=== PATIENT | male | born 1950 | race Caucasian/White ===

== ENCOUNTER 2018-07-10 09:16 | Inpatient (IN) | payer OTHER, MEDICAID ==
[~2018-07-10] VITALS: Ht 170.2 cm; Wt 80.8 kg
[2018-07-10] MEDS ORDERED: ACETAMINOPHEN 325MG TABLET PO STA (09:28)
[2018-07-10] MEDS ORDERED: SODIUM CHLORIDE 0.9% 1,000 ML IV ONE (09:28)
[2018-07-10 10:04] LABS: CHLORIDE 96 mEq/L (98-107)
[2018-07-10 10:07] LABS: INR 1.1; PROTHROMBIN TIME 11.4 sec (9.1-11.1)
[2018-07-10 10:12] LABS: HEMATOCRIT. 43.6 % (42.0-52.0); HEMOGLOBIN. 14.2 g/dL (14.0-18.0); MEAN CORPUSCULAR HEMOGLOBIN 29.4 pg (28.0-32.0); MEAN CORPUSCULAR VOLUME 90.2 fL (80.0-94.0); PLATELET 222 x1000/uL (130-400); RED BLOOD CELL COUNT 4.84 mill/uL (4.7-6.1); RED CELL DISTRIBUTION WIDTH 14.2 % (11.6-14.6)
[2018-07-10] MEDS ORDERED: SODIUM CHLORIDE 0.9% 1000ML BAG (SEPSIS BOLUS) IV ONE (10:30)
[2018-07-10] MEDS ORDERED: VANCOMYCIN 1 G PREMIX 200 ML IV ONE (10:30)
[2018-07-10] MEDS ORDERED: PIPERACILLIN/TAZ 3.375G PREMIX 50 ML IV ONE (10:30)
[2018-07-10 10:43] LABS: PLATELET ESTIMATE NORMAL
[2018-07-10 11:43] LABS: CLARITY URINE CLEAR (CLEAR); COLOR URINE DARK YELLOW (YELLOW); KETONES URINE TRACE (NEGATIVE); LEUKOCYTE ESTERASE URINE NEGATIVE (NEGATIVE); NITRITE URINE NEGATIVE (NEGATIVE); OCCULT BLOOD URINE NEGATIVE (NEGATIVE); PROTEIN URINE NEGATIVE (NEGATIVE); SPECIFIC GRAVITY URINE 1.018 (1.005-1.030); UROBILINOGEN URINE 0.2 E.U./dL (0.2-1.0)
[2018-07-10] MEDS ORDERED: DEXTROSE 50% WATER 50ML SYRINGE IV PRN (12:00)
[2018-07-10] MEDS ORDERED: ONDANSETRON HCL 4MG/2ML INJ IV PRN (12:00)
[2018-07-10] MEDS ORDERED: IPRATROPIUM/ALBUTEROL 0.5-3(2.5)MG/3ML NEB HHN PRN (12:00)
[2018-07-10] MEDS: ACETAMINOPHEN 325MG TABLET PO PRN ×2 (15:06→20:53)
[2018-07-10 15:30] VITALS: BP 140/70
[2018-07-10 16:00] VITALS: BP 134/72
[2018-07-10] MEDS ORDERED: PIPERACILLIN/TAZ 3.375G PREMIX 50 ML IV SCH (17:30)
[2018-07-10 18:00] VITALS: BP 127/70
[2018-07-10] MEDS: BLOOD SUGAR DIAGNOSTIC STRIP TEST SCH ×2 (18:00→21:00)
[2018-07-10] MEDS: INSULIN LISPRO 100 UNITS/ML SUBCUT SCH ×2 (19:00→21:49)
[2018-07-10] MEDS ORDERED: AMLO2.5T45 MT (19:49)
[2018-07-10] MEDS ORDERED: APIX5TAB MT (19:49)
[2018-07-10] MEDS ORDERED: ACET325S17 PO (19:49)
[2018-07-10] MEDS ORDERED: PRAV20TA57 MT (19:49)
[2018-07-10] MEDS ORDERED: TAMS0.4C31 MT (19:49)
[2018-07-10] MEDS ORDERED: FINA5TAB11 MT (19:49)
[2018-07-10] MEDS ORDERED: CLOP75TA33 MT (19:49)
[2018-07-10] MEDS ORDERED: OMEP40CA34 MT (19:49)
[2018-07-10] MEDS ORDERED: LOSA100T14 MT (19:49)
[2018-07-10] MEDS ORDERED: GABA-531 MT (19:49)
[2018-07-10] MEDS ORDERED: CHOL200074 MT (19:49)
[2018-07-10] MEDS ORDERED: METF-414 MT (19:49)
[2018-07-10] MEDS ORDERED: LORA10TA7 MT (19:49)
[2018-07-10 20:00] VITALS: BP 136/75
[2018-07-10] MEDS: VANCOMYCIN 1250MG in DEXTROSE 5% WATER 250ML IV SCH (20:54)
[2018-07-10] MEDS: APIXABAN 5 MG TABLET PO SCH (21:01)
[2018-07-10 22:00] VITALS: BP 172/98
[2018-07-11] VITALS (13 sets, daily range): BP systolic 110–181; BP diastolic 43–111
[2018-07-11] MEDS: PIPERACILLIN/TAZ 3.375G PREMIX 50 ML IV SCH ×4 (01:05→20:45)
[2018-07-11] MEDS: CLONIDINE 0.1MG TABLET PO PRN ×2 (04:14→13:15)
[2018-07-11 06:26] LABS: HEMATOCRIT. 37.5 % (42.0-52.0); HEMOGLOBIN. 12.6 g/dL (14.0-18.0); MEAN CORPUSCULAR VOLUME 89.1 fL (80.0-94.0); MEAN PLATELET VOLUME 8.2 fl (7.4-10.4); PLATELET 190 x1000/uL (130-400); RED CELL DISTRIBUTION WIDTH 14.2 % (11.6-14.6)
[2018-07-11 06:37] LABS: CHLORIDE 105 mEq/L (98-107)
[2018-07-11] MEDS: BLOOD SUGAR DIAGNOSTIC STRIP TEST SCH ×4 (07:55→21:00)
[2018-07-11] MEDS: VANCOMYCIN 1250MG in DEXTROSE 5% WATER 250ML IV SCH ×2 (07:55→20:56)
[2018-07-11] MEDS: INSULIN LISPRO 100 UNITS/ML SUBCUT SCH ×4 (07:56→21:33)
[2018-07-11 08:31] LABS: PLATELET ESTIMATE NORMAL
[2018-07-11] MEDS: APIXABAN 5 MG TABLET PO SCH ×2 (09:01→18:02)
[2018-07-11] MEDS: GUAIFENESIN 600MG ER TABLET PO SCH ×2 (09:01→20:56)
[2018-07-11] MEDS: MICAFUNGIN 100 MG in SODIUM CHLORIDE 0.9% 100 ML IV SCH (11:26)
[2018-07-11 12:18] LABS: *AMPHETAMINES SCREEN URINE NEGATIVE (NEGATIVE); *BARBITURATES SCREEN URINE NEGATIVE (NEGATIVE); *BENZODIAZEPINES SCREEN URINE NEGATIVE (NEGATIVE); *COCAINE SCREEN URINE NEGATIVE (NEGATIVE)
[2018-07-11 12:19] LABS: CANNABINOID URINE SCREEN NEGATIVE (NEGATIVE); METHADONE URINE SCREEN NEGATIVE (NEGATIVE); OPIATES URINE SCREEN NEGATIVE (NEGATIVE); PHENCYCLIDINE URINE SCREEN NEGATIVE (NEGATIVE)
[2018-07-11] MEDS ORDERED: ACETYLCYSTEINE 100MG/ML 10% VIAL 4ML INH NR (15:00)
[2018-07-11] MEDS ORDERED: SODIUM CHLORIDE 10% FOR INH 15ML VIAL NEB INH SCH (15:00)
[2018-07-11] MEDS: IPRATROPIUM/ALBUTEROL 0.5-3(2.5)MG/3ML NEB HHN SCH ×2 (16:00→21:09)
[2018-07-11 20:54] LABS: PROSTRATE SPECIFIC AG TOTAL 0.42 ng/mL (0.0-4.0)
[2018-07-11] MEDS: FLUTICASONE PROPIONATE 50MCG/SPRAY BOTTLE BOTHNSTRLS SCH (20:57)
[2018-07-11] MEDS ORDERED: GUAIFENESIN 600MG ER TABLET PO SCH (21:00)
[2018-07-11 21:09] LABS: CARCINO EMBRYONIC ANTIGEN < 0.5 ng/ml
[2018-07-12] VITALS (12 sets, daily range): BP systolic 107–159; BP diastolic 62–88
[2018-07-12] MEDS: PIPERACILLIN/TAZ 3.375G PREMIX 50 ML IV SCH ×4 (00:32→18:29)
[2018-07-12] MEDS: ACETYLCYSTEINE 100MG/ML 10% VIAL 4ML INH SCH ×3 (02:09→16:04)
[2018-07-12] MEDS: IPRATROPIUM/ALBUTEROL 0.5-3(2.5)MG/3ML NEB HHN SCH ×6 (02:09→22:00)
[2018-07-12] MEDS: ACETAMINOPHEN 325MG TABLET PO PRN ×2 (03:35→20:43)
[2018-07-12 06:11] LABS: BASOPHILS % 0.1 % (0.0-2.0); EOSINOPHILS % 0.7 % (0.0-5.0); HEMATOCRIT. 35.1 % (42.0-52.0); HEMOGLOBIN. 11.9 g/dL (14.0-18.0); LYMPHOCYTES % 10.5 % (20.0-50.0); MEAN CORPUSCULAR HEMOGLOBIN 29.9 pg (28.0-32.0); MEAN CORPUSCULAR VOLUME 88.2 fL (80.0-94.0); MEAN PLATELET VOLUME 8.4 fl (7.4-10.4); MONOCYTES % 9.2 % (2.0-8.0); NEUTROPHILS % 79.5 % (40.0-76.0); PLATELET 202 x1000/uL (130-400); RED BLOOD CELL COUNT 3.98 mill/uL (4.7-6.1)
[2018-07-12 06:27] LABS: CHLORIDE 103 mEq/L (98-107)
[2018-07-12] MEDS: BLOOD SUGAR DIAGNOSTIC STRIP TEST SCH ×4 (07:30→20:36)
[2018-07-12] MEDS: VANCOMYCIN 1250MG in DEXTROSE 5% WATER 250ML IV SCH ×2 (08:08→16:44)
[2018-07-12] MEDS: INSULIN LISPRO 100 UNITS/ML SUBCUT SCH ×4 (08:08→20:47)
[2018-07-12] MEDS: APIXABAN 5 MG TABLET PO SCH ×2 (09:07→16:42)
[2018-07-12] MEDS: GUAIFENESIN 600MG ER TABLET PO SCH ×2 (09:08→20:43)
[2018-07-12] MEDS: MICAFUNGIN 100 MG in SODIUM CHLORIDE 0.9% 100 ML IV SCH (09:08)
[2018-07-12] MEDS: FLUTICASONE PROPIONATE 50MCG/SPRAY BOTTLE BOTHNSTRLS SCH ×2 (09:09→20:50)
[2018-07-12] MEDS ORDERED: POTASSIUM CHLORIDE 20MEQ TABLET SR PO NR (11:00)
[2018-07-12] MEDS ORDERED: VANCOMYCIN 1250MG in DEXTROSE 5% WATER 250ML IV SCH (16:00)
[2018-07-12] MEDS ORDERED: HYDROCODONE/ACETAMINOPHEN 5/325MG TABLET PO PRN (17:00)
[2018-07-12] MEDS: HYDROCODONE/ACETAMINOPHEN 5/325MG TABLET PO PRN (18:01)
[2018-07-13] VITALS (12 sets, daily range): BP systolic 134–180; BP diastolic 68–102
[2018-07-13] MEDS: VANCOMYCIN 1250MG in DEXTROSE 5% WATER 250ML IV SCH ×3 (00:03→16:01)
[2018-07-13] MEDS: PIPERACILLIN/TAZ 3.375G PREMIX 50 ML IV SCH ×4 (00:03→18:44)
[2018-07-13] MEDS: ACETYLCYSTEINE 100MG/ML 10% VIAL 4ML INH SCH ×2 (02:07→17:40)
[2018-07-13] MEDS: IPRATROPIUM/ALBUTEROL 0.5-3(2.5)MG/3ML NEB HHN SCH ×5 (02:08→20:38)
[2018-07-13 06:54] LABS: BASOPHILS % 0.3 % (0.0-2.0); EOSINOPHILS % 1.8 % (0.0-5.0); HEMATOCRIT. 35.4 % (42.0-52.0); HEMOGLOBIN. 11.9 g/dL (14.0-18.0); LYMPHOCYTES % 13.9 % (20.0-50.0); MEAN CORPUSCULAR HEMOGLOBIN 29.9 pg (28.0-32.0); MEAN CORPUSCULAR VOLUME 88.8 fL (80.0-94.0); MEAN PLATELET VOLUME 7.8 fl (7.4-10.4); MONOCYTES % 8.2 % (2.0-8.0); NEUTROPHILS % 75.8 % (40.0-76.0); PLATELET 230 x1000/uL (130-400); RED BLOOD CELL COUNT 3.99 mill/uL (4.7-6.1); RED CELL DISTRIBUTION WIDTH 14.2 % (11.6-14.6)
[2018-07-13] MEDS: BLOOD SUGAR DIAGNOSTIC STRIP TEST SCH ×4 (07:30→21:25)
[2018-07-13 07:41] LABS: CHLORIDE 106 mEq/L (98-107)
[2018-07-13] MEDS: INSULIN LISPRO 100 UNITS/ML SUBCUT SCH ×4 (08:00→21:36)
[2018-07-13] MEDS: APIXABAN 5 MG TABLET PO SCH ×2 (08:37→16:01)
[2018-07-13] MEDS: GUAIFENESIN 600MG ER TABLET PO SCH ×2 (08:37→21:25)
[2018-07-13] MEDS: MICAFUNGIN 100 MG in SODIUM CHLORIDE 0.9% 100 ML IV SCH (10:06)
[2018-07-13] MEDS: FLUTICASONE PROPIONATE 50MCG/SPRAY BOTTLE BOTHNSTRLS SCH ×2 (10:16→21:25)
[2018-07-13] MEDS: ACETAMINOPHEN 325MG TABLET PO PRN (16:12)
[2018-07-13] MEDS: CLONIDINE 0.1MG TABLET PO PRN (21:26)
[2018-07-13] MEDS: HYDROCODONE/ACETAMINOPHEN 5/325MG TABLET PO PRN (21:26)
[2018-07-14] VITALS (10 sets, daily range): BP systolic 122–155; BP diastolic 59–93
[2018-07-14] MEDS: IPRATROPIUM/ALBUTEROL 0.5-3(2.5)MG/3ML NEB HHN SCH ×3 (00:27→12:40)
[2018-07-14] MEDS: ACETYLCYSTEINE 100MG/ML 10% VIAL 4ML INH SCH ×2 (00:28→09:00)
[2018-07-14] MEDS: VANCOMYCIN 1250MG in DEXTROSE 5% WATER 250ML IV SCH ×2 (02:05→08:46)
[2018-07-14] MEDS: PIPERACILLIN/TAZ 3.375G PREMIX 50 ML IV SCH ×3 (02:05→13:25)
[2018-07-14] MEDS: BLOOD SUGAR DIAGNOSTIC STRIP TEST SCH ×2 (07:30→13:00)
[2018-07-14] MEDS: MICAFUNGIN 100 MG in SODIUM CHLORIDE 0.9% 100 ML IV SCH (08:46)
[2018-07-14] MEDS: GUAIFENESIN 600MG ER TABLET PO SCH (08:46)
[2018-07-14] MEDS: APIXABAN 5 MG TABLET PO SCH (08:46)
[2018-07-14] MEDS: FLUTICASONE PROPIONATE 50MCG/SPRAY BOTTLE BOTHNSTRLS SCH (08:47)
[2018-07-14] MEDS: INSULIN LISPRO 100 UNITS/ML SUBCUT SCH ×2 (08:49→13:24)
[2018-07-14 13:09] LABS: QFT MITOGEN VALUE 3.71 IU/mL (.); QFT TB GOLD PLUS Negative (Negative); QFT TB1 AG VALUE 0.11 IU/mL (.)
[2018-07-14] MEDS ORDERED: APIX5TAB PO (14:14)
== END 2018-07-14 16:15 | disposition home or self-care (01) | DRG 871 ==
LOC: ER 09:30 → 5EST 11:47 → EDBEDREQ 11:49 → EDBEDREQTM 11:49 → ENRESERV 12:09
PROVIDERS: ADMIT Internal Medicine; ATTEND Family Medicine
DX: A41.9 Sepsis, unspecified organism (principal); J18.9 Pneumonia, unspecified organism; E87.2 Acidosis; I82.412 Acute embolism and thrombosis of left femoral vein; I10 Essential (primary) hypertension; E87.8 Other disorders of electrolyte and fluid balance, not elsewhere classified; E11.51 Type 2 diabetes mellitus with diabetic peripheral angiopathy without gangrene; E66.9 Obesity, unspecified; J00 Acute nasopharyngitis [common cold]; R91.8 Other nonspecific abnormal finding of lung field; J44.9 Chronic obstructive pulmonary disease, unspecified; R16.0 Hepatomegaly, not elsewhere classified; Z86.73 Personal history of transient ischemic attack (TIA), and cerebral infarction without residual deficits; Z86.718 Personal history of other venous thrombosis and embolism; Z87.891 Personal history of nicotine dependence; Z95.820 Peripheral vascular angioplasty status with implants and grafts; E04.1 Nontoxic single thyroid nodule; Z68.27 Body mass index [BMI] 27.0-27.9, adult; Z79.84 Long term (current) use of oral hypoglycemic drugs
CPT/HCPCS: 36415; 71045; 71250; 76536; 80048; 80202; 80305; 82105; 82378; 82962; 83605; 84145; 84153; 84484; 86480; 87070; 87804; 93005; 93970; 94640; 96365; 99291; J1815; J2248; J2405; J2543; J3370; J7030; J7040; J7050; J7060; J7131; J7608; J7620; G0103

== ENCOUNTER 2025-01-27 21:28 | Inpatient (IN) | payer MEDICARE, OTHER ==
[~2025-01-27] VITALS: Ht 172.7 cm; Wt 79.9 kg
[~2025-01-27 21:28] MED LIST: APIX5TAB PO; LORA10TA7 MT; OMEP40CA20 MT; PRAV20TA57 MT; TAMS0.4C31 MT
[2025-01-27 22:33] LABS: BASOPHILS % 0.5 % (0.0-2.0); EOSINOPHILS % 2.6 % (0.0-5.0); HEMATOCRIT. 44.1 % (42.0-52.0); HEMOGLOBIN. 14.8 g/dL (14.0-18.0); LYMPHOCYTES % 19.6 % (20.0-50.0); MEAN PLATELET VOLUME 8.0 fl (7.4-10.4); MONOCYTES % 8.0 % (2.0-8.0); NEUTROPHILS % 69.3 % (40.0-76.0); PLATELET 215 x1000/uL (130-400); RED BLOOD CELL COUNT 4.73 mill/uL (4.7-6.1); RED CELL DISTRIBUTION WIDTH 14.1 % (11.6-14.6)
[2025-01-27 22:48] LABS: CREATININE 0.8 mg/dL (0.6-1.3)
[2025-01-27 22:49] LABS: UREA NITROGEN BLOOD 13 mg/dL (9-23)
[2025-01-27 22:51] LABS: TROPONIN I HIGH SENSITIVITY 5 ng/L (3.0-53)
[2025-01-27 23:01] LABS: CLARITY URINE CLEAR (CLEAR); COLOR URINE YELLOW (YELLOW); GLUCOSE URINE 3+ (NEGATIVE); KETONES URINE TRACE (NEGATIVE); LEUKOCYTE ESTERASE URINE NEGATIVE (NEGATIVE); NITRITE URINE NEGATIVE (NEGATIVE); OCCULT BLOOD URINE NEGATIVE (NEGATIVE); PH URINE 5.5 (4.5-8.0); PROTEIN URINE NEGATIVE (NEGATIVE); SPECIFIC GRAVITY URINE 1.037 (1.005-1.030); UROBILINOGEN URINE 0.2 E.U./dL (0.2-1.0)
[2025-01-27 23:18] LABS: BACTERIA URINE TRACE; RBC URINE NONE SEEN /hpf (0-2); SQUAMOUS EPITHELIAL CELL URINE RARE /lpf (RARE/1+); WBC URINE 0-2 /hpf (0-2)
[2025-01-27] MEDS: SODIUM CHLORIDE 0.9% 1,000 ML IV ONE (23:56)
[2025-01-28] MEDS: HYDRALAZINE HCL 50MG TABLET PO ONE (01:03)
[2025-01-28 03:22] VITALS: BP 148/68; PULSE 64; RESP 20; TEMP 36.1956
[2025-01-28] MEDS ORDERED: LORATADINE 10MG TABLET PO PRN (04:15)
[2025-01-28] MEDS ORDERED: INSULIN LISPRO 100 UNITS/ML SUBCUT PRN (04:15)
[2025-01-28] MEDS ORDERED: HYDROCODONE/ACETAMINOPHEN 5/325MG TABLET PO PRN (04:15)
[2025-01-28 08:30] VITALS: BP 125/62; PULSE 56; RESP 18; TEMP 36.7; O2SAT 98
[2025-01-28] MEDS: METFORMIN HCL 500MG TABLET PO SCH (09:05)
[2025-01-28] MEDS: TAMSULOSIN HCL 0.4MG SR CAPSULE PO SCH (09:06)
[2025-01-28] MEDS: LOSARTAN 50 MG TABLET PO SCH (09:07)
[2025-01-28] MEDS: ASPIRIN 81MG TABLET PO SCH (09:07)
[2025-01-28] MEDS: APIXABAN 5 MG TABLET PO SCH (09:07)
[2025-01-28 12:09] LABS: BASOPHILS % 0.5 % (0.0-2.0); EOSINOPHILS % 2.7 % (0.0-5.0); HEMATOCRIT. 41.6 % (42.0-52.0); HEMOGLOBIN. 14.2 g/dL (14.0-18.0); LYMPHOCYTES % 25.7 % (20.0-50.0); MEAN PLATELET VOLUME 8.4 fl (7.4-10.4); MONOCYTES % 7.6 % (2.0-8.0); NEUTROPHILS % 63.5 % (40.0-76.0); PLATELET 190 x1000/uL (130-400); RED BLOOD CELL COUNT 4.47 mill/uL (4.7-6.1); RED CELL DISTRIBUTION WIDTH 14.1 % (11.6-14.6)
[2025-01-28 12:23] LABS: CREATININE 0.8 mg/dL (0.6-1.3); TRIGLYCERIDE 218 mg/dL (0-150); UREA NITROGEN BLOOD 10 mg/dL (9-23)
[2025-01-28 12:24] LABS: LDL CHOLESTEROL 98 mg/dL (5-100)
[2025-01-28 12:30] VITALS: BP 159/78; PULSE 65; RESP 20; TEMP 36.9; O2SAT 97
[2025-01-28 16:00] VITALS: BP 109/63; PULSE 67; RESP 20; TEMP 36.3; O2SAT 98
[2025-01-28] MEDS ORDERED: DEXTROSE 50% WATER 50ML SYRINGE IV PRN (17:15)
[2025-01-28] MEDS: BLOOD SUGAR DIAGNOSTIC STRIP TEST SCH (17:24)
[2025-01-28] MEDS: INSULIN LISPRO 100 UNITS/ML SUBCUT SCH (17:33)
[2025-01-28 20:00] VITALS: BP 143/86; PULSE 67; RESP 18; TEMP 36.7; O2SAT 97
[2025-01-28] MEDS ORDERED: ATORVASTATIN CALCIUM 40MG TABLET PO SCH (21:00)
[2025-01-28] MEDS: ATORVASTATIN CALCIUM 40MG TABLET PO SCH (21:43)
[2025-01-29] VITALS: BP 162/75; PULSE 63; RESP 16; TEMP 36.5; O2SAT 95
[2025-01-29 04:00] VITALS: BP 156/81; PULSE 60; RESP 18; TEMP 36.6; O2SAT 98
[2025-01-29 08:00] VITALS: BP 163/80; PULSE 61; RESP 15; TEMP 36.3; O2SAT 96
[2025-01-29 12:00] VITALS: BP 157/90; PULSE 60; RESP 15; TEMP 36.2; O2SAT 97
[2025-01-29 16:00] VITALS: BP 153/72; PULSE 64; RESP 16; TEMP 36.2; O2SAT 96
[2025-01-29 20:00] VITALS: BP 151/83; PULSE 78; RESP 18; TEMP 36.2; O2SAT 98
[2025-01-30 00:12] VITALS: BP 159/73; PULSE 62; RESP 19; TEMP 36.4; O2SAT 100
[2025-01-30 03:53] VITALS: BP 148/76; PULSE 62; RESP 19; TEMP 36.6; O2SAT 98
[2025-01-30 08:00] VITALS: BP 156/74; PULSE 60; RESP 18; TEMP 36.5; O2SAT 96
[2025-01-30 12:00] VITALS: BP 164/77; PULSE 56; RESP 18; TEMP 36.4; O2SAT 97
[2025-01-30 15:47] VITALS: BP 125/65; PULSE 85; TEMP 98; O2SAT 98
== END 2025-01-30 17:11 | disposition home health service (06) | DRG 552 ==
LOC: ER 21:28 → 7WST 01-28 00:53 → EDBEDREQTM 01-28 01:12 → EDBEDREQ 01-28 01:12 → EDBEDREQSVC 01-28 01:12 → ENRESERV 01-28 02:06
PROVIDERS: ADMIT Internal Medicine; ATTEND Internal Medicine
DX: M48.061 Spinal stenosis, lumbar region without neurogenic claudication (principal); I69.354 Hemiplegia and hemiparesis following cerebral infarction affecting left non-dominant side; R53.1 Weakness; I10 Essential (primary) hypertension; E11.51 Type 2 diabetes mellitus with diabetic peripheral angiopathy without gangrene; E11.65 Type 2 diabetes mellitus with hyperglycemia; E78.00 Pure hypercholesterolemia, unspecified; Z79.01 Long term (current) use of anticoagulants; Z79.899 Other long term (current) drug therapy
CPT/HCPCS: 36415; 70551; 71045; 72148; 80048; 80061; 81003; 82962; 83036; 84484; 85025; 87015; 87045; 87427; 87449; 87493; 93005; 93880; 97110; 97116; 97162; 97166; 97530; 99285; J1815; J7030